=== PATIENT | male | born 2000 | race Caucasian/White ===

== ENCOUNTER 2018-01-15 13:18 | Emergency (ER) | payer OTHER ==
[~2018-01-15] VITALS: Ht 177.8 cm; Wt 117.9 kg
[2018-01-15 13:28] VITALS: BP 163/97; Ht 177.8 cm; Wt 117.9 kg
== END 2018-01-15 15:44 | disposition home or self-care (01) ==
LOC: ED 13:18
DX: S00.83XA Contusion of other part of head, initial encounter (principal); K13.79 Other lesions of oral mucosa; W22.8XXA Striking against or struck by other objects, initial encounter; Y93.89 Activity, other specified; Y92.89 Other specified places as the place of occurrence of the external cause; Y99.8 Other external cause status

== ENCOUNTER 2018-02-18 19:19 | Emergency (ER) | payer OTHER ==
[~2018-02-18] VITALS: Ht 180.3 cm; Wt 108.9 kg
[2018-02-18 19:50] VITALS: Ht 180.3 cm; Wt 108.9 kg
[2018-02-18 21:13] VITALS: BP 153/87
== END 2018-02-18 21:13 | disposition home or self-care (01) ==
LOC: ED 19:19
DX: J02.9 Acute pharyngitis, unspecified (principal); R03.0 Elevated blood-pressure reading, without diagnosis of hypertension
CPT/HCPCS: J0561; J1100